=== PATIENT | female | born 1940 | race Caucasian/White ===

== ENCOUNTER 2018-09-14 08:09 | Day surgery (SDC) | payer OTHER, MEDICARE ==
[2018-09-07 11:54] VITALS: BMI 35.2
--- NOTE | 2018-09-08 14:42 | HP ---
Admitting History and Physical - Primary Care Physician PCP: Ced Robles - Admission Chief Complaint: Right breast cancer DCIS History of Present Illness: 78 year old female with abnormal screening mammogram showing pleomorphic calcifications right upper outer quadrant extending over 1.5 cm. Stereotactic core biopsy 07/2018 showed low grade DCIS with atypia ER+/ID+. Breast MRI showed Recently diagnosed right breast DCIS. Left breast negative. History Source: Patient Limitations to Obtaining History: No Limitations - Past Medical History Cardiovascular: Yes: Hyperlipdemia ENT: Yes: Other (allergies) Endocrine: Yes: Hypothyroidism - Advance Directives Advance Directives: Yes: Living Will, Health Care Proxy - Smoking History Smoking history: Never smoked - Alcohol/Substance Use Hx Alcohol Use: No Home Medications - Allergies Allergies/Adverse Reactions: Allergies Allergy/AdvReac Type Severity Reaction Status Date / Time latex Allergy Intermediate Itching Verified 09/07/18 11:54 Sulfa (Sulfonamide Allergy Intermediate Rash Verified 09/07/18 11:54 Antibiotics) - Home Medications Home Medications: Ambulatory Orders Acetaminophen [Tylenol -] 650 mg PO PRN PRN 09/07/18 Alendronate Sodium/Vitamin D3 [Fosamax Plus D 70 mg-5,600 Iu vIT d] 1 each PO Q7D 09/07/18 Atorvastatin Ca [Lipitor] 10 mg PO DAILY 09/07/18 Levothyroxine Sodium [Levoxyl] 100 mcg PO DAILY 09/07/18 Lorazepam [Ativan] 0.5 mg PO ASDIR 09/07/18 Montelukast Na [Singulair -] 10 mg PO DAILY 09/07/18 Family Disease History - Family Disease History Family History: Denies Physical Examination Constitutional: Yes: Well Nourished Breast(s): Yes: Other (Ptotic D sized breast . She has resolving bruising right upper outer quadrant from recent core biopsy no palpable densities or adenopathy bilaterally) Problem List - Problems (1) Ductal carcinoma in situ (DCIS) of right breast Code(s): D05.11 - INTRADUCTAL CARCINOMA IN SITU OF RIGHT BREAST Assessment/Plan Right breast wide excision with mammogram needle localization
[2018-09-14] MEDS ORDERED: LIDOCAINE HCL 1%, 10 MG/ML (20ML VIAL) ONE (13:20)
[2018-09-14] MEDS ORDERED: MIDAZOLAM HCL 2 MG/2 ML SINGLE DOSE VIAL ONE (13:38)
[2018-09-14] MEDS ORDERED: PROPOFOL 20 ML ONE ×2 (13:49)
[2018-09-14] MEDS ORDERED: ceFAZolin SODIUM 1 GM VIAL ONE (13:57)
[2018-09-14] MEDS ORDERED: ONDANSETRON 4 MG/2 ML VIAL ONE (14:37)
[2018-09-14] MEDS ORDERED: DEXAMETHASONE SOD PHOSPHATE 4 MG/1 ML VIAL ONE (14:37)
[2018-09-14] MEDS ORDERED: KETOROLAC TROMETHAMINE 30 MG/1 ML VIAL IVPUSH PRN (15:10)
[2018-09-14] MEDS ORDERED: ONDANSETRON 4 MG/2 ML VIAL IVPUSH PRN (15:10)
[2018-09-14] MEDS ORDERED: DEXTROSE 5%-0.45% SALINE 1,000 ML IV SCH (15:15)
[2018-09-14 15:55] VITALS: TEMP 97.5
[2018-09-14 17:04] VITALS: BP 128/72; PULSE 68
--- NOTE | 2018-09-14 19:10 | OP ---
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 PROCEDURE: Right breast partial mastectomy with mammographic needle localization and tissue transfer closure 3 x 4 cm. ANESTHESIA: General laryngeal mask airway anesthesia. SURGEON: Emmanuel Robles M.D. BRICK VENEER MAKER: Jacy Elaine COMPLICATIONS: There were no complications. DESCRIPTION OF PROCEDURE: Briefly, the patient is a 78-year-old G2, P2 postmenopausal white female of Ashkenazi Religious heritage with no family history of breast or ovarian cancer. She underwent mammography in July of 2018 showing calcifications in the upper outer aspect of the right breast extending over an area of about 1.5 cm. Stereotactic biopsy showed low-grade DCIS which was ER/OR positive, as well as some atypical lobular hyperplasia. MRI showed localized disease. She was advised to undergoing a right breast wide excision with mammographic needle localization. She was brought in through same day surgery on September 14, 2018, at first underwent mammographic localization of the clip in the upper outer aspect of the right breast. She was then brought to the holding area. In the holding area, site verification was made and informed consent was obtained. She was brought into the operating room and laid on the OR table in supine position. Venodynes were placed on the lower extremities. She was given a gram of Ancef prior to incision. The right breast was sterilely prepped and draped in the usual fashion with the wire prepped in the field. A timeout was then called. Then 1% lidocaine was given in a curvilinear fashion around the needle localization site towards the upper outer aspect of the right breast. Curvilinear incision was made and dissection was undertaken around the needle localization wire, and the breast tissue was completely removed from around the wire with the wire intact in the middle of the specimen. The specimen was oriented with a long lateral, short superior suture , and specimen radiographs showed removal of the clip in question with calcifications. Several margins were then taken on the superior, inferior, medial, lateral, deep , and anterior aspects with a suture margin biopsy cavity side. All specimens were sent down to pathology separately in formalin. Hemostasis was achieved. At this point, a 3 x 4 cm tissue transfer closure was accomplished by undermining the breast tissue and bringing in a 3 x 4 cm region of breast tissue to close the defect. The breast tissue was reapproximated using 2-0 plain suture. The skin was closed using interrupted 3-0 deep dermal Vicryl suture and a running 4-0 subcuticular Biosyn suture. Mastisol and Steri-Strips were applied over the wound with a compressive dressing placed over this. She was placed in a surgical bra postoperatively. The patient was awake and alert at the end of the procedure and will be recovered and discharged home the same day. She will follow up in the office in 1 week for formal wound pathology check. Again, all sponge and needle counts were correct at the end of the case, and estimated blood loss was minimal. EMMANUEL ROBLES M.D. [id number] MTDD
--- NOTE | 2018-09-20 11:48 | PATH ---
Surgical Pathology Report Patient Name: EMY SHEPHERD [facility]. Rec. #: [id number] /Age/Gender: 1940 (Age: 78) / F Account: [id number] Location: [facility] Taken: 09/14/2018 Received: 09/14/2018 Reported: 09/20/2018 Physicians: Ced Robles M.D. Specimen(s) Received A: RIGHT BREAST WIDE EXCISION B: MEDIAL MARGIN RIGHT BREAST C: LATERAL MARGIN RIGHT BREAST D: INFERIOR MARGIN RIGHT BREAST E: SUPERIOR MARGIN RIGHT BREAST F: POSTERIOR MARGIN RIGHT BREAST G: ANTERIOR MARGIN RIGHT BREAST Clinical History Low grade DCIS Final Diagnosis A. breast, right, wide excision: Ductal carcinoma in situ (DCIS), cribriform type, low nuclear grade WITH moderate necrosis and associated calcifications. DCIS is present in two of eight slides (2/8), with the largest contiguous focus of DCIS measuring 1.0 cm in greatest dimension, microscopically. DCIS is FOCALLY close to (< 1 cm) the POSTERIOR margin. see specimens B-g for final margins. Remaining breast tissue shows fibrocystic changes and sclerosing adenosis. Prior biopsy site changes are present. Pathologic stage (pTNM): pTis(dcis) pNx. see also DCIS case summary below. note: See also prior slide review case (our , outside case number [id number]). B. breast, right, medial margin, excision: Benign predominantly fatty breast tissue. C. breast, right, lateral margin, excision: Benign breast tissue. D. breast, right, inferior margin, excision: Benign breast tissue. E. breast, right, superior margin, excision: Benign fibrofatty tissue and scant skeletal muscle. F. breast, right, posterior margin, excision: Benign fibrofatty tissue and skeletal muscle. G. breast, right, anterior margin, excision: Benign breast tissue. Comments DCIS of the Breast: Surgical Pathology Cancer Case Summary (Based on AJCC TNM 8 th edition) Procedure _X_ Excision (less than total mastectomy) Specimen Laterality _X_ Right Size (Extent) of DCIS Estimated size (extent) of DCIS (greatest dimension using gross and microscopic evaluation): at least (millimeters) 10 mm Number of blocks with DCIS: 2 Number of blocks examined: 25 (based on specimens A-G) Note: The size (extent) of DCIS is an estimation of the volume of breast tissue occupied by DCIS. Histologic Type _X_ Ductal carcinoma in situ Architectural Patterns _X_ Cribriform Nuclear Grade _X_ Grade I (low) Necrosis _X_ Present, focal (small foci or single cell necrosis) Margins _X_ Uninvolved by DCIS Distance from closest margin (millimeters): < 1 mm from posterior margin in wide excision A. Final posterior margin F is negative for DCIS. Regional Lymph Nodes _X_ No lymph nodes submitted Pathologic Stage Classification (pTNM, AJCC 8th Edition) Primary Tumor (pT) _X_ pTis (DCIS): Ductal carcinoma in situ Regional Lymph Nodes (pN) _X_ pNx Microcalcifications _X_ Present in DCIS _X_ Present in nonneoplastic tissue Biomarker Studies Results of ER and WA studies will be reported separately in an addendum. Electronically Signed Zeynep Tyson M.D. Gross Description A. Received in formalin, labeled "right breast wide excision," is a 6.2 x 5.8 x 2.0 cm. bagley-yellow, irregular, portion of fibroadipose tissue with a needle localization wire present. There is a short suture marking the superior aspect and a long suture marking the lateral aspect, per the surgeon. There is no skin or nipple present. The specimen is inked as follows: superior and lateral blue; inferior green; medial yellow; anterior red; posterior black. The specimen is serially sectioned from superior to inferior. Sectioning reveals a 2.4 x 1.5 x 1.2 cm ill-defined focus of firm fibrous tissue at the inferior aspect of the specimen. There is a ibanez metallic biopsy clip identified within the focus. The fibrous tissue abuts the lateral, anterior and posterior margins. Software Product Specialist sections are submitted in 8 cassettes as follows: [id number] and sequentially submitted focus of fibrous tissue (each with lateral, anterior and posterior margins); 6-inferior margin; 7-superior margin; 8-medial margin. Time to formalin fixation: 22 minutes Total formalin fixation time: Approximately 27 hours. B. Received in formalin labeled "medial margin right breast," is a 2.0 x 1.4 x 0.4 cm portion of fibroadipose tissue with a suture marking the biopsy cavity side, per the surgeon. The new margin is inked blue and the specimen is serially sectioned. The specimen is entirely submitted in 2 cassettes. C. Received in formalin labeled "lateral margin right breast," is a 3.3 x 3.2 x 0.9 cm portion of fibroadipose tissue with a suture marking the biopsy cavity side, per the surgeon. The new margin is inked blue and the specimen is serially sectioned. The specimen is entirely and sequentially submitted in 4 cassettes. D. Received in formalin labeled "inferior margin right breast," is a 2.8 x 2.0 x 1.4 cm portion of fibroadipose tissue with a suture marking the biopsy cavity side, per the surgeon. The new margin is inked blue and the specimen is serially sectioned. The specimen is entirely and sequentially submitted in 3 cassettes. E. Received in formalin labeled "superior margin right breast," is a 3.0 x 2.3 x 0.6 cm portion of fibroadipose tissue with a suture marking the biopsy cavity side, per the surgeon. The new margin is inked blue and the specimen is serially sectioned. The specimen is entirely submitted in 3 cassettes. F. Received in formalin labeled "posterior margin right breast," is a 1.7 x 1.4 x 0.5 cm portion of fibroadipose tissue with a suture marking the biopsy cavity side, per the surgeon. The new margin is inked blue and the specimen is serially sectioned. The specimen is entirely submitted in 2 cassettes. G. Received in formalin labeled "anterior margin right breast," is a 3.5 x 2.5 x 0.6 cm portion of fibroadipose tissue with a suture marking the biopsy cavity side, per the surgeon. The new margin is inked blue and the specimen is serially sectioned. The specimen is entirely submitted in 3 cassettes. 09/15/2018 [facility]09/15/2018
== END 2018-09-14 16:45 | disposition home or self-care (01) ==
LOC: FASU 08:09
PROVIDERS: ATTEND Surgery Surgical Oncology
PROC: 0JX60ZC Transfer Chest Subcutaneous Tissue and Fascia with Skin, Subcutaneous Tissue and Fascia, Open Approach (ICD-10-PCS; 2018-09-14)
PROC: 0HBT0ZZ Excision of Right Breast, Open Approach (ICD-10-PCS; principal; 2018-09-14 13:58)
DX: D05.11 Intraductal carcinoma in situ of right breast (principal); E03.9 Hypothyroidism, unspecified; E78.5 Hyperlipidemia, unspecified
CPT/HCPCS: 19281; 88307-TC; 88342-TC